=== PATIENT | female | born 1990 | race Caucasian/White ===

== ENCOUNTER 2020-06-20 11:59 | Inpatient (IN) | payer OTHER ==
[2020-06-24] MEDS ORDERED: CARBOPROST TROMETHAMINE 250 MCG/ML 1 ML AMP IM PRN (06:43)
[2020-06-24] MEDS ORDERED: METHYLERGONOVINE 0.2 MG/ML 1 ML AMP IM PRN (06:43)
[2020-06-24] MEDS ORDERED: TERBUTALINE 1 MG/ML VIAL SQ PRN (06:43)
[2020-06-24] MEDS ORDERED: LIDOCAINE 0.5% (PF) 5 MG/ML (50 ML SDV) SQ PRN (06:43)
[2020-06-24] MEDS ORDERED: OXYTOCIN 10 UNIT/ML 1 ML VIAL IM PRN (06:43)
[2020-06-24] MEDS ORDERED: OXYTOCIN 30 UNITS/500 ML NS 30 UNIT in SALINE 1 500ML.BAG IV SCH (06:45)
[2020-06-24 06:48] LABS: Glucose,Whole Blood 97 mg/dL (75-99)
[2020-06-24] MEDS: LACTATED RINGERS 1,000 ML IV SCH ×3 (07:05→12:20)
[2020-06-24 07:09] LABS: Basophils % (A) 0 %; Eosinophils # (A) 0.1 k/uL (0-0.7); Eosinophils % (A) 1 %; HCT 45.4 % (34.0-46.0); Lymphocytes # (A) 1.8 k/uL (1.0-4.8); Lymphocytes % (A) 19 %; MCH 31.4 pg (25.0-35.0); Mean Platelet Volume 10.9; Monocytes # (A) 0.5 k/uL (0-1.0); Monocytes % (A) 5 %; Neutrophils # (A) 7.1 k/uL (1.3-7.7); Neutrophils % (A) 74 %; Platelet Count 173 k/uL (150-450); RBC 4.78 m/uL (3.80-5.40); RDW 13.2 % (11.5-15.5); WBC 9.6 k/uL (3.8-10.6)
[2020-06-24 07:21] LABS: Anisocytosis (M) Present; Hypochromasia (M) Present
[2020-06-24] MEDS ORDERED: BUTORPHANOL 1 MG/ML 1 ML VIAL IV PRN (08:38)
--- NOTE | 2020-06-24 08:42 | P.HPOB ---
History of Present Illness H&P Date: 06/24/20 Chief Complaint: 40-4/7 weeks, induction The patient is a 30-year-old 1 para 0 admitted at 40-4/7 weeks as established by last menstrual period and confirmed by 8 week ultrasound. She is admitted for induction of labor with all signs reassuring. Her has b een complicated by gestational diabetes with excellent diet control of blood sugars and reassuring testing since 32 weeks on a weekly basis. Otherwise she has had no other complications. Group B strep status is negative. Obstetrical history: 1 para 0 with current statistics listed in history present illness. EDC of 06/20/2020 was established by last menstrual period and confirmed by 8 week ultrasound. Laboratory workup demonstrates a blood type of A+ with a negative antibody screen. Rubella status is immune. The remainder of the laboratory workup was within normal limits. Second trimester Glucola was elevated and followed by an abnormal three-hour glucose tolerance test making the diagnosis of gestational diabetes. Group B strep status is negative. Gynecologic history: Unremarkable with no history of any infections to include STDs. Review of Systems Review of systems is confined to history of present illness. Past Medical History Past Medical History: No Reported History History of Any Multi-Drug Resistant Organisms: None Reported Past Surgical History: Hernia Repair, Tonsillectomy Past Anesthesia/Blood Transfusion Reactions: No Reported Reaction Past Psychological History: Anxiety Smoking Status: Former smoker Past Alcohol Use History: None Reported Past Drug Use History: None Reported - Past Family History Father Family Medical History: No Reported History Medications and Allergies Home Medications Medication Instructions Recorded Confirmed Type No Known Home Medications 06/24/20 06/24/20 History Allergies Allergy/AdvReac Type Severity Reaction Status Date / Time No Known Allergies Allergy Verified 06/24/20 06:42 Exam Vital Signs Temp Pulse Resp BP Pulse Ox 06/24/20 06:42 97.3 F L 80 16 125/67 97 Intake and Output 06/23/20 06/24/20 06/24/20 22:59 06:59 14:59 Other: Weight 88.904 kg In general, this is a well-developed, well-nourished white female in no acute distress. Her heart has a regular rhythm and rate without murmur. Her lungs are clear to auscultation bilaterally in all love. Her abdomen is gravid, nondistended, has normal active bowel sounds, is soft, nontender, and without any palpable masses aside from uterine fundus. Her extremities without any cyanosis, clubbing, or edema and are nontender to palpation bilaterally. Digital cervical examination on straights her cervix to be 2+ centimeters dilated, 70% effaced, the vertex in presentation at -1-2 station. Artificial rupture of membranes is carried out demonstrating clear fluid. Results Result Diagrams: 06/24/20 06:50 Assessment and Plan (1) Post-dates Current Visit: Yes Status: Acute Code(s): O48.0 - POST-TERM SNOMED Code(s): 07634219 Plan: The patient has been admitted for induction of labor. Pitocin augmentation has been started and she is undergone artificial rupture of membranes. She'll have close maternal and surveillance and expectant management will be practiced. She is a good candidate for either IV or epidural analgesia, whichever she may choose.
[2020-06-24] MEDS ORDERED: ROPIVACAINE 100 MG, fentaNYL (PF) 200 MCG in SODIUM CHLORIDE 0.9% 76 ML EPIDURAL ONE (12:20)
[2020-06-24] MEDS ORDERED: CITRIC ACID-SODIUM CITRATE 15 ML CUP PO ONE (16:35)
[2020-06-24] MEDS ORDERED: KETOROLAC 30 MG/ML 1 ML VIAL ONE (16:51)
[2020-06-24] MEDS ORDERED: MORPHINE SULFATE (PF) 0.3 MG/0.3 ML SYR ONE (16:51)
[2020-06-24] MEDS ORDERED: ONDANSETRON 4 MG/2 ML VIAL ONE (16:51)
[2020-06-24] MEDS ORDERED: OXYTOCIN 10 UNIT/ML 1 ML VIAL ONE (16:51)
[2020-06-24] MEDS ORDERED: NALBUPHINE 10 MG/ML (1 ML AMP) ONE (16:51)
[2020-06-24] MEDS ORDERED: METOCLOPRAMIDE 5 MG/ML 2 ML VIAL IVP PRN (17:45)
[2020-06-24] MEDS ORDERED: NALOXONE 0.4 MG/ML 1 ML VIAL IV PRN (17:45)
[2020-06-24] MEDS ORDERED: SIMETHICONE 80 MG CHEWABLE PO PRN (17:45)
[2020-06-24] MEDS ORDERED: diphenhydrAMINE 50 MG/ML 1 ML VIAL IVP PRN ×2 (17:45)
[2020-06-24] MEDS ORDERED: ZOLPIDEM 5 MG TAB PO PRN (17:45)
[2020-06-24] MEDS ORDERED: LANOLIN CREAM 5 GM TUBE TOPICAL PRN (17:45)
[2020-06-24] MEDS ORDERED: OXYTOCIN 20 UNITS/1000 ML NS 1,000 ML IV SCH (17:45)
[2020-06-24] MEDS ORDERED: ONDANSETRON 4 MG/2 ML VIAL IVP PRN (17:45)
[2020-06-24] MEDS ORDERED: HYDROcodone/APAP 7.5-325MG 1 EACH TAB PO PRN (17:45)
[2020-06-24] MEDS ORDERED: diphenhydrAMINE 50 MG CAP PO PRN (17:45)
[2020-06-24] MEDS ORDERED: diphenhydrAMINE 25 MG CAP PO PRN (17:45)
[2020-06-24] MEDS ORDERED: ACETAMINOPHEN TAB 325 MG TAB PO PRN (17:45)
--- NOTE | 2020-06-24 17:55 | P.OP ---
Date of Procedure: 06/24/20 Preoperative Diagnosis: #1. 40-4/7 weeks, induction #2. Gestational diabetes #3. Arrest of descent Postoperative Diagnosis: Same Procedure(s) Performed: #1. Primary low-transverse section Anesthesia: epidural Surgeon: Robin Lucas Dip Tube Assembler Machine #1: Jennifer Ghotra Estimated Blood Loss (ml): 600 IV fluids (ml): 600 Urine output (ml): 100 Pathology: none sent Condition: stable Disposition: floor Operative Findings: Preoperative early, the patient had been pushing for close to 2 hours with descent of the head to approximately 0 station. She was thought to have a somewhat narrow angle of the symphysis and was developing It. Additionally, the infant with pushing effort began to have repetitive late decelerations with fairly slow recovery and occasional overshoot. Given these findings along with the suspected relatively large infant predicted at 87th percentile growth at 36 weeks, decision was made to proceed to the operating room for section. At surgery, the patient was delivered of a viable 8 lbs. 6 oz. baby boy with Apgars of 9 at 1 minute 9 at 5 minutes delivered in the left occiput anterior position. The head was noted to be very deep in the pelvis and was difficult to elevate. As result, there was blood-tinged urine during and after the procedure. The placenta was delivered manually, intact, and grossly normal with a grossly normal three-vessel cord. The uterus, tubes, and ovaries were entirely normal to inspection. Description of Procedure: The patient was prepped and draped in usual fashion after epidural anesthesia was bolused by the anesthesiologist. A Pfannenstiel incision was made and extended into the abdominal cavity without difficulty. The bladder peritoneum was elevated, incised, and reflected distally. A 270 incision was made in the transverse plane of the lower uterine segment to enter the uterus at which time clear fluid was again noted. The incision was extended in both directions using the bandage scissors. The head was encountered deep within the pelvis and, with some difficulty, was ultimately delivered up and through the incision where the nose and mouth were suctioned. Remainder of the was delivered onto the field where the cord was doubly clamped, cut, and the infant passed for resuscitative measures with weight and Apgars as noted above. The placenta was delivered manually and intact as noted above. The uterus was exteriorized and the interior cavity of the uterus swept of any remaining placental or membranous fragments of which there were several. The margins of the incision were grasped with Newsome clamps and there was minimal extension at either angle. Incision was closed in 2 stitches, the first a running locking stitch of 0 chromic catgut followed by a running imbricating stitch of 0 chromic catgut, each from margin to margin. Following closure of the incision in 2 layers, and reexamination demonstrated some ongoing bleeding at both angles which was ultimately made hemostatic with several limbah-xe-aptvu stitches of 0 chromic catgut. Any small points of bleeding were made hemostatic with the Bovie. The posterior cul-de-sac was suctioned with a guard and the uterine and ovarian findings were normal as noted above. The uterus was replaced within the abdominal cavity and the uterine incision reexamined. It was at this time that 2 kcdndn-qm-wnlus stitches were placed as noted above at the angles ultimately controlling the bleeding. Once hemostasis had been established, the gutters were swept of any remaining blood, fluid, or clot. The parietal peritoneum was loosely reapproximated and layer of muscles examined and made hemostatic with the Bovie. The fascia was closed with 2 running stitches of 0 Vicryl proceeding from lateral margins to the midpoint. The subcutaneous tissues were irrigated and made hemostatic with the Bovie but not closed as it was less than 2 cm of depth. The skin was closed with a running subcuticular stitch of 4-0 Vicryl from margin to margin followed by half inch Steri-Strips placed with Mastisol. Assessment a blood loss for the case was approximately 600 mL. There are no complications. All sponge, insulin, needle counts were correct. The patient tolerated the procedure well and proceeded to the recovery room in stable condition. Both mother and are resting comfortably in recovery.
[2020-06-24] MEDS: SENNOSIDES-DOCUSATE SODIUM 1 EACH TAB PO SCH (21:00)
[2020-06-24] MEDS: KETOROLAC 30 MG/ML 1 ML VIAL IVP PRN (22:52)
[2020-06-25] MEDS: LACTATED RINGERS 1,000 ML IV SCH ×2 (00:17→01:33)
[2020-06-25] MEDS: KETOROLAC 30 MG/ML 1 ML VIAL IVP PRN ×2 (05:03→10:57)
[2020-06-25 05:53] LABS: Basophils % (A) 0 %; Eosinophils % (A) 0 %; HCT 35.8 % (34.0-46.0); HGB 11.6 gm/dL (11.4-16.0); Lymphocytes % (A) 9 %; MCH 30.7 pg (25.0-35.0); MCHC 32.4 g/dL (31.0-37.0); MCV 94.6 fL (80.0-100.0); Mean Platelet Volume 10.6; Monocytes # (A) 0.5 k/uL (0-1.0); Monocytes % (A) 4 %; Neutrophils % (A) 86 %; Platelet Count 124 k/uL (150-450); RBC 3.78 m/uL (3.80-5.40); RDW 13.1 % (11.5-15.5); WBC 11.7 k/uL (3.8-10.6)
--- NOTE | 2020-06-25 08:01 | P.PN ---
Progress Note - Text Date: 06/25/2020 Time: 06 :39 The patient is status post section Vital signs stable VAS:[ 0-10] Patient has no complaints of pain. The patient incurred some minimal itching yesterday, this itching is now subsiding. Pain meds to be managed by service.
--- NOTE | 2020-06-25 08:32 | P.PNOBGPC ---
Subjective - Subjective Patient reports: Reports appetite normal, Reports voiding normally, Reports pain well controlled, Reports ambulating normally : doing well Objective - Vital Signs Latest vital signs: Vital Signs Temp Pulse Resp BP Pulse Ox 06/25/20 04:00 83 18 117/76 06/25/20 00:00 98.5 F 70 16 124/64 97 06/24/20 19:45 96.1 F L 74 18 120/66 98 06/24/20 19:15 97.1 F L 73 18 121/68 97 06/24/20 18:45 74 16 116/59 97 06/24/20 18:30 80 16 112/63 97 06/24/20 18:15 81 16 108/59 98 06/24/20 18:00 70 16 100/53 98 06/24/20 17:45 97.7 F 71 16 111/53 98 Intake and Output 06/24/20 06/25/20 06/25/20 22:59 06:59 14:59 Output Total 600 300 Balance -600 -300 Output: Urine 600 300 Other: Voiding Method Indwelling Catheter Toilet - Exam Extremities: Present: normal Abdomen: Present: normal appearance, soft. Absent: distention, tenderness Incision: Present: normal, dry, intact Uterus: Present: normal, firm (The uterine fundus is tonic and appropriately tender at the umbilicus.) - Labs Labs: Abnormal Lab Results - Last 24 Hours (Table) 06/25/20 Range/Units 05:15 WBC 11.7 H (3.8-10.6) k/uL RBC 3.78 L (3.80-5.40) m/uL Plt Count 124 L (150-450) k/uL Neutrophils # 10.0 H (1.3-7.7) k/uL Assessment and Plan (1) Post-dates Current Visit: Yes Status: Acute Code(s): O48.0 - POST-TERM SNOMED Code(s): 22713731 (2) S/P section Current Visit: Yes Status: Acute Code(s): Z98.891 - HISTORY OF UTERINE SCAR FROM PREVIOUS SURGERY SNOMED Code(s): 613160431 Plan: Continue routine postoperative care. I have encouraged the patient and put in the hallways routinely and would anticipate discharge home tomorrow pending no complications.
[2020-06-25] MEDS: SENNOSIDES-DOCUSATE SODIUM 1 EACH TAB PO SCH ×2 (08:42→19:57)
[2020-06-25] MEDS: HYDROcodone/APAP 5-325MG 1 EACH TAB PO PRN ×2 (13:49→20:00)
[2020-06-25] MEDS: IBUPROFEN 600 MG TAB PO PRN ×2 (16:54→22:14)
[2020-06-26] MEDS: HYDROcodone/APAP 5-325MG 1 EACH TAB PO PRN (01:34)
[2020-06-26] MEDS: IBUPROFEN 600 MG TAB PO PRN (07:29)
[2020-06-26] MEDS: SENNOSIDES-DOCUSATE SODIUM 1 EACH TAB PO SCH (07:30)
[2020-06-26 07:42] VITALS: BP 113/77; PULSE 91; RESP 16; TEMP 98.4
--- NOTE | 2020-06-26 08:51 | P.DS ---
Providers Date of admission: 06/24/20 06:31 Expected date of discharge: 06/26/20 Attending physician: Robin Lucas Primary care physician: Stated None - Discharge Diagnosis(es) (1) Post-dates Current Visit: Yes Status: Acute (2) S/P section Current Visit: Yes Status: Acute Hospital Course: The patient is a 30-year-old 1 para 0 admitted at 40-4/7 weeks by good dating parameters perches admitted for induction of labor with all signs reassuring. She was found with gestational diabetes during and was well controlled with diet alone. There are otherwise no complications and group B strep status is negative. On labor and delivery, she had Pitocin started followed by artificial rupture of membranes. She made relatively average progress through the latent phase of labor and had an epidural catheter placed from the onset of the active phase of labor. She did progress. Fairly quickly through the active phase of labor to complete and began pushing. She was found, however, to have arrested descent at approximately 0 to +1 station after approximately 2 hours of pushing and was thought to have a slightly contracted pelvic shape. She was taken the operating room where she was delivered by primary low transverse section of a viable 8 lbs. 6 oz. baby boy with Apgars of 9 at 1 minute and 9 at 5 minutes. Her and postoperative courses were entirely unremarkable with vital signs remaining stable and her temperature was afebrile throughout. She was deemed stable for discharge on post operative and day #2 and was discharged home to follow-up in the office in 2 weeks for an incision check and 6 weeks routinely. Discharge instructions included calling for any significantly increased bleeding or foul-smelling lochia, significantly increased fever or abdominal pain, perineal complaints, breast complaints, incisional complaints, or anything else that concerned her. She was additionally instructed to have nothing in vagina for at least 6 weeks time to include intercourse and to abstain from any heavy lifting over the same period of time. She is less instructed to do no driving until off of all pain medications or 2 weeks' time, whichever came first. She understood all of her instructions and agrees to follow up as noted above. Discharge medications included continued vitamins as she has opted to breast-feed. She was otherwise provided with a prescription for Broadbent 5/325 mg, 1-2 by mouth every 6 hours when necessary pain, #20 dispensed with no refills. She was otherwise to use vbnu-mdh-gbyyome analgesic pain medications as needed. Maternal blood type is A+ and rubella status is immune. Discharge hemoglobin and hematocrit were 11.6 and 35.8 respectively. Procedures: #1. Pitocin induction #2. Artificial rupture of membranes #3. Epidural analgesia #4. Primary low-transverse section Patient Condition at Discharge: Stable Plan - Discharge Summary New Discharge Prescriptions: No Action No Known Home Medications Discharge Medication List No Known Home Medications 06/24/20 [History] Follow up Appointment(s)/Referral(s): Robin Lucas MD [STAFF PHYSICIAN] - 2 Weeks Discharge Disposition: HOME SELF-CARE
== END 2020-06-26 10:45 | disposition home or self-care (01) | DRG 788 ==
LOC: 4FBP 06-24 06:31
PROVIDERS: ADMIT Obstetrics & Gynecology; ATTEND Obstetrics & Gynecology
PROC: 10D00Z1 Extraction of Products of Conception, Low, Open Approach (ICD-10-PCS; principal; 2020-06-24 16:43)
PROC: 3E0R3BZ Introduction of Anesthetic Agent into Spinal Canal, Percutaneous Approach (ICD-10-PCS; principal; 2020-06-24 16:43)
PROC: 10907ZC Drainage of Amniotic Fluid, Therapeutic from Products of Conception, Via Natural or Artificial Opening (ICD-10-PCS; principal; 2020-06-24 16:43)
PROC: 00HU33Z Insertion of Infusion Device into Spinal Canal, Percutaneous Approach (ICD-10-PCS; principal; 2020-06-24 16:43)
PROC: 3E033VJ Introduction of Other Hormone into Peripheral Vein, Percutaneous Approach (ICD-10-PCS; principal; 2020-06-24 16:43)
DX: O48.0 Post-term pregnancy (principal); O24.420 Gestational diabetes mellitus in childbirth, diet controlled; K21.9 Gastro-esophageal reflux disease without esophagitis; O62.1 Secondary uterine inertia; O76 Abnormality in fetal heart rate and rhythm complicating labor and delivery; O99.89 Other specified diseases and conditions complicating pregnancy, childbirth and the puerperium; R31.0 Gross hematuria; O99.62 Diseases of the digestive system complicating childbirth; Z3A.40 40 weeks gestation of pregnancy; Z37.0 Single live birth; Z87.891 Personal history of nicotine dependence; Z87.19 Personal history of other diseases of the digestive system; Z90.89 Acquired absence of other organs; Z98.890 Other specified postprocedural states; Z86.59 Personal history of other mental and behavioral disorders
CPT/HCPCS: 85025; 86850; 86900; 86901

== ENCOUNTER 2022-05-31 09:32 | Emergency (ER) | payer BC, OTHER ==
[2022-05-31 09:42] VITALS: TEMP 98
[2022-05-31 10:19] VITALS: RESP 18
--- NOTE | 2022-05-31 10:30 | XR ---
EXAMINATION TYPE: XR chest 2V DATE OF EXAM: 05/31/2022 COMPARISON: NONE HISTORY: Shortness of breath TECHNIQUE: Frontal and lateral views of the chest are obtained. FINDINGS: There is no focal air space opacity, pleural effusion, or pneumothorax seen. The cardiac silhouette size is within normal limits. The osseous structures are intact. IMPRESSION: No acute cardiopulmonary process.
--- NOTE | 2022-05-31 10:31 | XR ---
EXAMINATION TYPE: XR soft tissue neck DATE OF EXAM: 05/31/2022 COMPARISON: NONE HISTORY: Shortness of breath. TECHNIQUE: 2 view soft tissue neck. FINDINGS: No suspicious prevertebral soft tissue swelling. Region of epiglottis and vallecula appears within normal limits on the lateral view. No suspicious narrowing of the subglottic airway on the fr ontal view. Incidental moderate spurring and disc space narrowing C5-C6 level. IMPRESSION: As above.
--- NOTE | 2022-05-31 10:50 | ED ---
URI HPI - General Chief Complaint: Upper Respiratory Infection Stated Complaint: SOB Time Seen by Provider: 05/31/22 09:43 Source: patient, RN notes reviewed Mode of arrival: ambulatory Limitations: no limitations - History of Present Illness Initial Comments: 32-year-old female presents emergency Department with chief complaint of cough and congestion. Patient states she has been sick last to 3 days. Patient states initially that she took a negative COVID-19 test. Patient states that she awoke with throat, chest congestion and had some shortness of breath but that cleared. Patient has a congestion bodyaches no reported fever. - Related Data Home Medications Medication Instructions Recorded Confirmed Lisdexamfetamine Dimesylate 30 mg PO DAILY 05/31/22 05/31/22 [Vyvanse] Allergies Allergy/AdvReac Type Severity Reaction Status Date / Time No Known Allergies Allergy Verified 05/31/22 10:21 Review of Systems ROS Statement: Those systems with pertinent positive or pertinent negative responses have been documented in the HPI. ROS Other: All systems not noted in ROS Statement are negative. Past Medical History Past Medical History: No Reported History History of Any Multi-Drug Resistant Organisms: None Reported Past Surgical History: Section, Hernia Repair, Tonsillectomy Past Anesthesia/Blood Transfusion Reactions: No Reported Reaction Past Psychological History: ADD/ADHD, Anxiety Smoking Status: Former smoker Past Alcohol Use History: None Reported Past Drug Use History: None Reported - Past Family History Father Family Medical History: No Reported History General Exam Limitations: no limitations General appearance: alert, in no apparent distress Head exam: Present: atraumatic, normocephalic, normal inspection Eye exam: Present: normal appearance, PERRL, EOMI. Absent: scleral icterus, conjunctival injection, periorbital swelling ENT exam: Present: mucous membranes moist, TM's normal bilaterally, normal external ear exam. Absent: normal exam, normal oropharynx (Postnasal drainage) Neck exam: Present: normal inspection, full ROM. Absent: tenderness, meningismus, lymphadenopathy Respiratory exam: Present: normal lung sounds bilaterally. Absent: respiratory distress, wheezes, rales, rhonchi, stridor Cardiovascular Exam: Present: regular rate, normal rhythm, normal heart sounds. Absent: systolic murmur, diastolic murmur, rubs, gallop, clicks Course Vital Signs 05/31/22 05/31/22 09:38 10:10 Temperature 98.0 F Pulse Rate 97 Respiratory 22 18 Rate Blood Pressure 131/84 O2 Sat by Pulse 100 Oximetry Medical Decision Making - Medical Decision Making Patient has positive Covid 19. Patient we discharged in stable condition. Return parameters were discussed. - Lab Data Lab Results 05/31/22 Range/Units 10:07 Coronavirus (PCR) Detected A (Not Detectd) Disposition Clinical Impression: COVID-19 Disposition: HOME SELF-CARE Condition: Stable Instructions (If sedation given, give patient instructions): COVID-19 (Coronavirus Disease 2019) (ED) Additional Instructions: Please return to the Emergency Department if symptoms worsen or any other concerns. Is patient prescribed a controlled substance at d/c from ED?: No Referrals: Rylan Huerta MD [Primary Care Provider] - 1-2 days Time of Disposition: 10:50
[2022-05-31 10:58] VITALS: BP 127/81; PULSE 89
== END 2022-05-31 11:00 | disposition home or self-care (01) ==
LOC: EC 09:32
DX: U07.1 COVID-19 (principal); Z87.891 Personal history of nicotine dependence
CPT/HCPCS: 70360; 71046; 87635; 99285

== ENCOUNTER 2023-09-07 15:36 | Emergency (ER) | payer BC ==
--- NOTE | 2023-09-07 16:17 | ED ---
Female Urogenital HPI - General Source: patient, RN notes reviewed Mode of arrival: ambulatory Limitations: no limitations - History of Present Illness Last Menstrual Period: 09/07/23 <Negra Lemon - Last Filed: 09/07/23 16:17> <Gagan Dodd - Last Filed: 09/07/23 18:30> - General Chief complaint: Vaginal Bleeding Stated complaint: Vaginal Bleeding Time Seen by Provider: 09/07/23 16:16 - History of Present Illness Initial comments: Patient is a 33-year-old female who presents emergency department for vaginal bleeding. Patient states over the past couple weeks she has had heavier menstrual periods. She started her period on Tuesday and today has had increased bleeding soaking 1 pad in 20 minutes. Patient called Godfrey Bell who told her to come in for evaluation. (Negra Lemon) A 33-year-old female presenting to the ED with a chief complaint of vaginal bleeding. Patient notes over the past few months has had heavier periods than u sual. States today, a lot more vaginal bleeding that she is used to. States that she is went through 12 pads. Also notes some abdominal cramping in the left lower abdomen. Patient states that every time she is on her period this area increases in pain. States it is currently 3 out of 10 in severity. Patient states is dull in nature. No vaginal discharge. No urinary symptoms. Denies dizziness or lightheadedness. No other complaints. (Gagan Dodd) - Related Data Home Medications Medication Instructions Recorded Confirmed Lisdexamfetamine Dimesylate 30 mg PO DAILY 05/31/22 05/31/22 [Vyvanse] Allergies Allergy/AdvReac Type Severity Reaction Status Date / Time No Known Allergies Allergy Verified 09/07/23 16:09 Review of Systems ROS Other: All systems not noted in ROS Statement are negative. <Negra Lemon - Last Filed: 09/07/23 16:17> ROS Other: All systems not noted in ROS Statement are negative. <Gagan Dodd - Last Filed: 09/07/23 18:30> ROS Statement: Those systems with pertinent positive or pertinent negative responses have been documented in the HPI. Past Medical History Past Medical History: No Reported History History of Any Multi-Drug Resistant Organisms: None Reported Past Surgical History: Section, Hernia Repair, Orthopedic Surgery, Tonsillectomy Past Anesthesia/Blood Transfusion Reactions: No Reported Reaction Past Psychological History: ADD/ADHD, Anxiety Smoking Status: Former smoker Past Alcohol Use History: Occasional Past Drug Use History: None Reported - Past Family History Father Family Medical History: No Reported History <Negra Lemon - Last Filed: 09/07/23 16:17> General Exam Limitations: no limitations <Negra Lemon - Last Filed: 09/07/23 16:17> General appearance: alert, in no apparent distress Eye exam: Present: normal appearance Neck exam: Present: normal inspection Respiratory exam: Present: normal lung sounds bilaterally Cardiovascular Exam: Present: regular rate, normal rhythm GI/Abdominal exam: Present: soft (Minimal tenderness to palpation left lower quadrant. No rebound guarding or rigidity.), normal bowel sounds Neurological exam: Present: alert, oriented X3 Skin exam: Present: warm, dry <Gagan Dodd - Last Filed: 09/07/23 18:30> - General Exam Comments Initial Comments: Visual Physical Exam Vital signs reviewed General: Well-appearing, nontoxic, no acute distress. Head: Normocephalic, atraumatic Eyes: PERRLA, EOMI ENT: Airway patent Chest: Nonlabored breathing Skin: No visual rash, normal skin tone Neuro: Alert and oriented 3 Musculoskeletal: No gross abnormalities (Negra Lemon) Course Vital Signs 09/07/23 16:04 Temperature 98.5 F Pulse Rate 91 Respiratory 18 Rate Blood Pressure 128/76 O2 Sat by Pulse 98 Oximetry Medical Decision Making <Negra Lemon - Last Filed: 09/07/23 16:17> - Lab Data Result diagrams: 09/07/23 17:14 09/07/23 17:14 <Gagan Dodd - Last Filed: 09/07/23 18:30> - Medical Decision Making I performed the QuickNote portion of this chart - Negra Lemon PA-C (Negra Lemon) Was pt. sent in by a medical professional or institution (KRISTIAN Da Silva, METAL PICKLING EQUIPMENT OPERATOR, urgent care, hospital, or [facility]...) When possible be specific @ -No Did you speak to anyone other than the patient for history (EMS, parent, family, police, friend...)? What history was obtained from this source @ -No Did you review nursing and triage notes (agree or disagree)? Why? @ -I reviewed and agree with nursing and triage notes Were old charts reviewed (outside hosp., previous admission, EMS record, old EKG, old radiological studies, urgent care reports/EKG's, [facility] records)? Report findings @ -No old charts were reviewed Differential Diagnosis (chest pain, altered mental status, abdominal pain women, abdominal pain men, vaginal bleeding, weakness, fever, dyspnea, syncope, headache, dizziness, GI bleed, back pain, seizure, CVA, palpatations, mental health, musculoskeletal)? @ -Differential Vaginal Bleeding: Spontaneous , threatened , molar , ectopic , bloody show, incompetent cervix, abruptioplacenta, placenta previa, uterine rupture, dysfunctional uterine bleeding, hemorrhage, uterine fibroids, this is not meant to be an all-inclusive list. EKG interpreted by me (3pts min.). @ -None X-rays interpreted by me (1pt min.). @ -None done CT interpreted by me (1pt min.). @ -None done U/S interpreted by me (1pt. min.). @ -Transvaginal ultrasound interpreted by me showing no acute finding. What testing was considered but not performed or refused? (CT, X-rays, U/S, labs)? Why? @ -None What meds were considered but not given or refused? Why? @ -None Did you discuss the management of the patient with other professionals (professionals i.e. , PA, METAL PICKLING EQUIPMENT OPERATOR, lab, RT, psych nurse, social media job titles, director phone, teacher, medical officer psychiatry, special education case manager)? Give summary @ -No Was smoking cessation discussed for >3mins.? @ -No Was critical care preformed (if so, how long)? @ -No Were there social determinants of health that impacted care today? How? (Homelessness, low income, unemployed, alcoholism, drug addiction, transportation, low edu. Level, literacy, decrease access to med. care, group home, rehab)? @ -No Was there de-escalation of care discussed even if they declined (Discuss DNR or withdrawal of care, Hospice)? DNR status @ -No What co-morbidities impacted this encounter? (DM, HTN, Smoking, COPD, CAD, Cancer, CVA, ARF, Chemo, Hep., AIDS, mental health diagnosis, sleep apnea, morbid obesity)? @ -None Was patient admitted / discharged? Hospital course, mention meds given and route , prescriptions, significant lab abnormalities, going to OR and other pertinent info. @ -Discharge 33-year-old female who notes for the past few months has had heavier periods perez n usual presenting to the ED with a chief complaint of heavy bleeding. At this time, hemoglobin stable. Transvaginal ultrasound showed no acute finding. Patient reports that she is unable to or via a urine sample at this time however denies urinary symptoms and strongly believes that she is not . Patient also notes that she has an appointment with her CEMENT CAR DUMPER tomorrow. At this time, patient stable for discharge. Discussed return precautions with patient who verbalizes agreement. Undiagnosed new problem with uncertain prognosis? @ -No Drug Therapy requiring intensive monitoring for toxicity (Heparin, Nitro, Insulin, Cardizem)? @ -No Were any procedures done? @ -No Diagnosis/symptom? @ -Menorrhagia Acute, or Chronic, or Acute on Chronic? @ -Acute Uncomplicated (without systemic symptoms) or Complicated (systemic symptoms)? @ -Uncomplicated Side effects of treatment? @ -No Exacerbation, Progression, or Severe Exacerbation? @ -No Poses a threat to life or bodily function? How? (Chest pain, [place], [place], pneumonia, PE, COPD, DKA, ARF, appy, cholecystitis, CVA, Diverticulitis, Homicidal, Suicidal, threat to staff... and all critical care pts) @ -No (Gaagn Dodd) - Lab Data Lab Results 09/07/23 09/07/23 09/07/23 Range/Units 17:14 17:14 17:14 WBC 9.4 (3.8-10.6) k/uL RBC 4.46 (3.80-5.40) m/uL Hgb 14.1 (11.4-16.0) gm/dL Hct 42.5 (34.0-46.0) % MCV 95.2 (80.0-100.0) fL MCH 31.6 (25.0-35.0) pg MCHC 33.2 (31.0-37.0) g/dL RDW 12.4 (11.5-15.5) % Plt Count 256 (150-450) k/uL MPV 9.1 Neutrophils % 63 % Lymphocytes % 30 % Monocytes % 4 % Eosinophils % 2 % Basophils % 0 % Neutrophils # 5.9 (1.3-7.7) k/uL Lymphocytes # 2.8 (1.0-4.8) k/uL Monocytes # 0.3 (0-1.0) k/uL Eosinophils # 0.1 (0-0.7) k/uL Basophils # 0.0 (0-0.2) k/uL Sodium 137 (137-145) mmol/L Potassium 4.3 (3.5-5.1) mmol/L Chloride 105 (98-107) mmol/L Carbon Dioxide 20 L (22-30) mmol/L Anion Gap 12 mmol/L BUN 10 (7-17) mg/dL Creatinine 0.69 (0.52-1.04) mg/dL Est GFR (CKD-EPI)AfAm >90 (>60 ml/min/1.73 sqM) Est GFR (CKD-EPI)NonAf >90 (>60 ml/min/1.73 sqM) Glucose 92 (74-99) mg/dL Plasma Lactic Acid Don 0.9 (0.7-2.0) mmol/L Calcium 9.7 (8.4-10.2) mg/dL Total Bilirubin 0.6 (0.2-1.3) mg/dL AST 27 (14-36) U/L ALT 18 (4-34) U/L Alkaline Phosphatase 42 (38-126) U/L Total Protein 8.4 H (6.3-8.2) g/dL Albumin 5.0 (3.5-5.0) g/dL Lipase 115 (23-300) U/L Disposition <Negra Lemon - Last Filed: 09/07/23 16:17> Is patient prescribed a controlled substance at d/c from ED?: No Time of Disposition: 18:29 <Gagan Dodd - Last Filed: 09/07/23 18:30> Clinical Impression: Menorrhagia Disposition: HOME SELF-CARE Condition: Good Instructions (If sedation given, give patient instructions): Dysmenorrhea (ED) Additional Instructions: Please return to the Emergency Department if symptoms worsen or any other concerns. Please follow up with your CEMENT CAR DUMPER. Referrals: Rylan Huerta MD [Primary Care Provider] - 1-2 days
[2023-09-07 16:19] VITALS: BP 128/76; PULSE 91; RESP 18; TEMP 98.5
[2023-09-07] MEDS ORDERED: IBUPROFEN 600 MG TAB PO STA (17:25)
[2023-09-07 17:27] LABS: Basophils % (A) 0 %; Eosinophils # (A) 0.1 k/uL (0-0.7); Eosinophils % (A) 2 %; HCT 42.5 % (34.0-46.0); HGB 14.1 gm/dL (11.4-16.0); Lymphocytes # (A) 2.8 k/uL (1.0-4.8); Lymphocytes % (A) 30 %; MCH 31.6 pg (25.0-35.0); MCHC 33.2 g/dL (31.0-37.0); MCV 95.2 fL (80.0-100.0); Mean Platelet Volume 9.1; Monocytes # (A) 0.3 k/uL (0-1.0); Monocytes % (A) 4 %; Neutrophils # (A) 5.9 k/uL (1.3-7.7); Neutrophils % (A) 63 %; Platelet Count 256 k/uL (150-450); RBC 4.46 m/uL (3.80-5.40); RDW 12.4 % (11.5-15.5); WBC 9.4 k/uL (3.8-10.6)
--- NOTE | 2023-09-07 17:43 | US ---
EXAMINATION TYPE: US transvaginal DATE OF EXAM: 09/07/2023 COMPARISON: NONE CLINICAL INDICATION: Female, 33 years old with history of vaginal bleeding; Heavy bleeding today. Per iod started Tuesday09/04/23. . TECHNIQUE: Transvaginal (TV). Date of LMP: 09/04/22 EXAM MEASUREMENTS: Uterus: 6.8 x 4.9 x 3.6 cm Endometrial Stripe: 0.6 cm Right Ovary: 3.1 x 2.8 x 1.5 cm Left Ovary: 3.5 x 2.7 x 1.8 cm 1. Uterus: Anteverted wnl 2. Endometrium: There does appear to be some small cystic areas seen inside, no vascularity. 3. Right Ovary: follicles seen 4. Left Ovary: follicles seen Spectral, color and waveform doppler imaging shows good arterial and venous flow within the ovaries ; there is no evidence for ovarian torsion. 5. Bilateral Adnexa: wnl 6. Posterior cul-de-sac: wnl IMPRESSION: No evidence for acute process. 1. The endometrium is within normal limits for thickness.
[2023-09-07 17:58] LABS: ALT 18 U/L (4-34); AST 27 U/L (14-36); African American GFR (CKD) >90 (>60 ml/min/1.73 sqM); Alkaline Phosphatase 42 U/L (38-126); Anion Gap 12 mmol/L; Blood Urea Nitrogen 10 mg/dL (7-17); Calcium 9.7 mg/dL (8.4-10.2); Carbon Dioxide 20 mmol/L (22-30); Chloride 105 mmol/L (98-107); Glucose 92 mg/dL (74-99); Lipase 115 U/L (23-300); Non-African American GFR(CKD) >90 (>60 ml/min/1.73 sqM); Potassium 4.3 mmol/L (3.5-5.1); Sodium 137 mmol/L (137-145); Total Bilirubin 0.6 mg/dL (0.2-1.3); Total Protein 8.4 g/dL (6.3-8.2)
== END 2023-09-07 18:47 | disposition home or self-care (01) ==
LOC: EC 15:36
DX: N92.0 Excessive and frequent menstruation with regular cycle (principal); F41.9 Anxiety disorder, unspecified; Z87.891 Personal history of nicotine dependence; Z79.899 Other long term (current) drug therapy
CPT/HCPCS: 36415; 76830; 80053; 83605; 83690; 85025; 93975; 99284

== ENCOUNTER 2024-02-04 19:59 | Emergency (ER) | payer BC ==
[2024-02-04 20:32] VITALS: TEMP 98.4
[2024-02-04] MEDS: SODIUM CHLORIDE 0.9% 1,000 ML IV STA (20:55)
[2024-02-04] MEDS: MORPHINE SULFATE 4 MG/ML SYRINGE IVP STA (20:55)
[2024-02-04] MEDS: METOCLOPRAMIDE 5 MG/ML 2 ML VIAL IVP STA (20:57)
[2024-02-04 20:58] LABS: Basophils % (A) 0 %; Eosinophils # (A) 0.1 k/uL (0-0.7); Eosinophils % (A) 1 %; HGB 12.5 gm/dL (11.4-16.0); Lymphocytes # (A) 0.8 k/uL (1.0-4.8); Lymphocytes % (A) 12 %; MCH 31.3 pg (25.0-35.0); MCHC 32.8 g/dL (31.0-37.0); MCV 95.5 fL (80.0-100.0); Mean Platelet Volume 8.8; Monocytes # (A) 0.2 k/uL (0-1.0); Monocytes % (A) 3 %; Neutrophils # (A) 5.4 k/uL (1.3-7.7); Neutrophils % (A) 82 %; Platelet Count 206 k/uL (150-450); RBC 3.97 m/uL (3.80-5.40); RDW 12.3 % (11.5-15.5); WBC 6.5 k/uL (3.8-10.6)
[2024-02-04] MEDS: KETOROLAC 15 MG/ML 1 ML VIAL IVP STA (20:59)
--- NOTE | 2024-02-04 21:06 | ED ---
Abdominal Pain HPI - General Chief Complaint: Abdominal Pain Stated Complaint: Upper left abdominal pain Time Seen by Provider: 02/04/24 20:14 Source: patient Mode of arrival: ambulatory Limitations: no limitations - History of Present Illness Initial Comments: 33-year-old female presenting with chief complaint of abdominal pain. Patient is complaining of sharp left upper quadrant pain. Patient states that for the last 2 weeks she has had dull pain to the upper abdomen, states that she has felt very bloated and a "fullness". Today this pain intensifies to a sharp and stabbing pain. She admits to nausea, no vomiting. No recent injury or trauma. No dysuria or hematuria. No fevers or chills. No chest pain or difficulty breathing. No diarrhea, hematochezia, melena. - Related Data Home Medications Medication Instructions Recorded Confirmed Lisdexamfetamine Dimesylate 30 mg PO DAILY 05/31/22 05/31/22 [Vyvanse] Allergies Allergy/AdvReac Type Severity Reaction Status Date / Time No Known Allergies Allergy Verified 09/07/23 16:09 Review of Systems ROS Statement: Those systems with pertinent positive or pertinent negative responses have been documented in the HPI. ROS Other: All systems not noted in ROS Statement are negative. Past Medical History Past Medical History: No Reported History History of Any Multi-Drug Resistant Organisms: None Reported Past Surgical History: Section, Hernia Repair, Orthopedic Surgery, Tonsillectomy Past Anesthesia/Blood Transfusion Reactions: No Reported Reaction Past Psychological History: ADD/ADHD, Anxiety Smoking Status: Former smoker Past Alcohol Use History: Occasional Past Drug Use History: None Reported - Past Family History Father Family Medical History: No Reported History General Exam Limitations: no limitations General appearance: alert, in no apparent distress Head exam: Present: atraumatic, normocephalic Eye exam: Present: normal appearance Neck exam: Present: normal inspection Respiratory exam: Present: normal lung sounds bilaterally. Absent: respiratory distress, wheezes, rales, rhonchi, stridor Cardiovascular Exam: Present: regular rate, normal rhythm, normal heart sounds. Absent: systolic murmur, diastolic murmur, rubs, gallop, clicks GI/Abdominal exam: Present: soft, tenderness. Absent: distended, guarding, rebound, rigid Neurological exam: Present: alert, oriented X3 Psychiatric exam: Present: normal affect, normal mood Skin exam: Present: warm, dry Course Vital Signs 02/04/24 02/04/24 02/05/24 20:01 22:22 01:45 Temperature 98.4 F 98.4 F Pulse Rate 102 H 77 80 Respiratory 18 16 16 Rate Blood Pressure 105/59 103/63 107/64 O2 Sat by Pulse 98 97 97 Oximetry Medical Decision Making - Medical Decision Making Was pt. sent in by a medical professional or institution (, PA, THERMO PROCESSOR, urgent care, hospital, or skilled nursing...) When possible be specific @ -No Did you speak to anyone other than the patient for history (EMS, parent, family, police, friend...)? What history was obtained from this source @ -No Did you review nursing and triage notes (agree or disagree)? Why? @ -I reviewed and agree with nursing and triage notes Were old charts reviewed (outside hosp., previous admission, EMS record, old EKG, old radiological studies, urgent care reports/EKG's, skilled nursing records)? Report findings @ -No old charts were reviewed Differential Diagnosis (chest pain, altered mental status, abdominal pain women, abdominal pain men, vaginal bleeding, weakness, fever, dyspnea, syncope, headache, dizziness, GI bleed, back pain, seizure, CVA, palpatations, mental health, musculoskeletal)? @ -MDM Differential Abdominal Pain Women: Appendicitis, Cholecystitis, diverticulosis, ischemic bowel, pancreatitis, hepatitis, UTI, gastroenteritis, AAA, incarcerated hernia, bowel obstruction, constipation, inflammatory bowel, hepatitis, peptic ulcer disease, splenic infarction, perforated viscus, vulvitis, ovarian torsion, PID, kidney stone, placenta abruption... This is not meant to be an all-inclusive list EKG interpreted by me (3pts min.). @ -As above X-rays interpreted by me (1pt min.). @ -None done CT interpreted by me (1pt min.). @ -CT shows no acute findings in the abdomen or pelvis U/S interpreted by me (1pt. min.). @ -Ultrasound shows no evidence for acute process What testing was considered but not performed or refused? (CT, X-rays, U/S, labs)? Why? @ -None What meds were considered but not given or refused? Why? @ -None Did you discuss the management of the patient with other professionals (professionals i.e. , PA, THERMO PROCESSOR, lab, RT, psych nurse, social media marketing specialist, radiologic technologist, teacher, alumni relations officer, director of casework department)? Give summary @ -No Was smoking cessation discussed for >3mins.? @ -No Was critical care preformed (if so, how long)? @ -No Were there social determinants of health that impacted care today? How? (Homelessness, low income, unemployed, alcoholism, drug addiction, transportation, low edu. Level, literacy, decrease access to med. care, alf, rehab)? @ -No Was there de-escalation of care discussed even if they declined (Discuss DNR or withdrawal of care, Hospice)? DNR status @ -No What co-morbidities impacted this encounter? (DM, HTN, Smoking, COPD, CAD, Cancer, CVA, ARF, Chemo, Hep., AIDS, mental health diagnosis, sleep apnea, morbid obesity)? @ -None Was patient admitted / discharged? Hospital course, mention meds given and route, prescriptions, significant lab abnormalities, going to OR and other pertinent info. @ -33-year-old female present with chief complaint of left upper quadrant pain. She has had discomfort for the last 2 weeks and today was having sharp pain. History and physical exam are conducted. The abdomen is soft and nondistended. There does not appear to be any localized tenderness. Some mild discomfort on palpation. Lab work shows no leukocytosis or anemia. Patient's bilirubin is slightly elevated 2.1 and AST of 67. Amylase and lipase are WNL. Urine shows no infectious process or bleeding and hCG is negative. Ultrasound shows no acute process. Patient is reassessed after Toradol, Reglan, morphine, and 1 L fluid bolus. She reports improvement in her pain. Given the patient's mildly elevated bilirubin, decision was made to obtain CT scan to account for findings that may have been difficult to discern due to bowel gas. CT shows no acute process. By my interpretation there does appear to be a large amount of bowel gas in the upper abdomen, particularly in the left upper quadrant, this may account for the patient's symptoms. On reassessment she is resting comfortably and her pain has resolved. She will be discharged home. She is educated on today's findings. Follow-up with PCP. Report back to ER with any new or worsening symptoms. Discussed return parameters and answered all questions. Patient conveyed verbal understanding and agreed to the plan. I discussed this case in detail with my attending Dr. Elder Undiagnosed new problem with uncertain prognosis? @ -No Drug Therapy requiring intensive monitoring for toxicity (Heparin, Nitro, Insulin, Cardizem)? @ -No Were any procedures done? @ -No Diagnosis/symptom? @ -Abdominal pain Acute, or Chronic, or Acute on Chronic? @ -Acute Uncomplicated (without systemic symptoms) or Complicated (systemic symptoms)? @ -Uncomplicated Side effects of treatment? @ -No Exacerbation, Progression, or Severe Exacerbation? @ -No Poses a threat to life or bodily function? How? (Chest pain, [place], [place], pneumonia, PE, COPD, DKA, ARF, appy, cholecystitis, CVA, Diverticulitis, Homicidal, Suicidal, threat to staff... and all critical care pts) @ -No - Lab Data Result diagrams: 02/04/24 20:41 02/04/24 20:41 Lab Results 02/04/24 02/04/24 02/04/24 Range/Units 20:41 20:41 20:41 WBC 6.5 (3.8-10.6) k/uL RBC 3.97 (3.80-5.40) m/uL Hgb 12.5 (11.4-16.0) gm/dL Hct 38.0 (34.0-46.0) % MCV 95.5 (80.0-100.0) fL MCH 31.3 (25.0-35.0) pg MCHC 32.8 (31.0-37.0) g/dL RDW 12.3 (11.5-15.5) % Plt Count 206 (150-450) k/uL MPV 8.8 Neutrophils % 82 % Lymphocytes % 12 % Monocytes % 3 % Eosinophils % 1 % Basophils % 0 % Neutrophils # 5.4 (1.3-7.7) k/uL Lymphocytes # 0.8 L (1.0-4.8) k/uL Monocytes # 0.2 (0-1.0) k/uL Eosinophils # 0.1 (0-0.7) k/uL Basophils # 0.0 (0-0.2) k/uL Sodium (137-145) mmol/L Potassium (3.5-5.1) mmol/L Chloride (98-107) mmol/L Carbon Dioxide (22-30) mmol/L Anion Gap mmol/L BUN (7-17) mg/dL Creatinine (0.52-1.04) mg/dL Est GFR (CKD-EPI)AfAm (>60 ml/min/1.73 sqM) Est GFR (CKD-EPI)NonAf (>60 ml/min/1.73 sqM) Glucose (74-99) mg/dL Plasma Lactic Acid Don (0.7-2.0) mmol/L Calcium (8.4-10.2) mg/dL Total Bilirubin (0.2-1.3) mg/dL AST (14-36) U/L ALT (4-34) U/L Alkaline Phosphatase (38-126) U/L Troponin I (0.000-0.034) ng/mL Total Protein (6.3-8.2) g/dL Albumin (3.5-5.0) g/dL Amylase (30-110) U/L Lipase (23-300) U/L Urine Color Colorless Urine Appearance Clear (Clear) Urine pH 5.5 (5.0-8.0) Ur Specific [place] 1.007 (1.001-1.035) Urine Protein Negative (Negative) Urine Glucose (UA) Negative (Negative) Urine Ketones Negative (Negative) Urine Blood Negative (Negative) Urine Nitrite Negative (Negative) Urine Bilirubin Negative (Negative) Urine Urobilinogen <2.0 (<2.0) mg/dL Ur Leukocyte Esterase Negative (Negative) Urine HCG, Qual Not Detected (Not Detectd) 02/04/24 02/04/24 02/04/24 Range/Units 20:41 20:41 20:41 WBC (3.8-10.6) k/uL RBC (3.80-5.40) m/uL Hgb (11.4-16.0) gm/dL Hct (34.0-46.0) % MCV (80.0-100.0) fL MCH (25.0-35.0) pg MCHC (31.0-37.0) g/dL RDW (11.5-15.5) % Plt Count (150-450) k/uL MPV Neutrophils % % Lymphocytes % % Monocytes % % Eosinophils % % Basophils % % Neutrophils # (1.3-7.7) k/uL Lymphocytes # (1.0-4.8) k/uL Monocytes # (0-1.0) k/uL Eosinophils # (0-0.7) k/uL Basophils # (0-0.2) k/uL Sodium 131 L (137-145) mmol/L Potassium (3.5-5.1) mmol/L Chloride 108 H (98-107) mmol/L Carbon Dioxide 14 L (22-30) mmol/L Anion Gap 9 mmol/L BUN 9 (7-17) mg/dL Creatinine 0.59 (0.52-1.04) mg/dL Est GFR (CKD-EPI)AfAm >90 (>60 ml/min/1.73 sqM) Est GFR (CKD-EPI)NonAf >90 (>60 ml/min/1.73 sqM) Glucose 103 H (74-99) mg/dL Plasma Lactic Acid Don 1.0 (0.7-2.0) mmol/L Calcium 8.0 L (8.4-10.2) mg/dL Total Bilirubin 2.1 H (0.2-1.3) mg/dL AST 67 H (14-36) U/L ALT 19 (4-34) U/L Alkaline Phosphatase <20 L (38-126) U/L Troponin I 0.029 (0.000-0.034) ng/mL Total Protein 7.8 (6.3-8.2) g/dL Albumin 4.5 (3.5-5.0) g/dL Amylase 67 (30-110) U/L Lipase 77 (23-300) U/L Urine Color Urine Appearance (Clear) Urine pH (5.0-8.0) Ur Specific [place] (1.001-1.035) Urine Protein (Negative) Urine Glucose (UA) (Negative) Urine Ketones (Negative) Urine Blood (Negative) Urine Nitrite (Negative) Urine Bilirubin (Negative) Urine Urobilinogen (<2.0) mg/dL Ur Leukocyte Esterase (Negative) Urine HCG, Qual (Not Detectd) Disposition Clinical Impression: Abdominal pain Disposition: HOME SELF-CARE Condition: Poor Instructions (If sedation given, give patient instructions): Abdominal Pain (ED) Additional Instructions: Follow-up with PCP. Report back to ER with any new or worsening symptoms. Is patient prescribed a controlled substance at d/c from ED?: No Referrals: Rylan Huerta MD [Primary Care Provider] - 1-2 days Time of Disposition: 01:33
[2024-02-04 21:10] LABS: ALT 19 U/L (4-34); AST 67 U/L (14-36); African American GFR (CKD) >90 (>60 ml/min/1.73 sqM); Albumin 4.5 g/dL (3.5-5.0); Alkaline Phosphatase <20 U/L (38-126); Amylase 67 U/L (30-110); Anion Gap 9 mmol/L; Blood Urea Nitrogen 9 mg/dL (7-17); Carbon Dioxide 14 mmol/L (22-30); Chloride 108 mmol/L (98-107); Glucose 103 mg/dL (74-99); Lipase 77 U/L (23-300); Non-African American GFR(CKD) >90 (>60 ml/min/1.73 sqM); Sodium 131 mmol/L (137-145); Total Bilirubin 2.1 mg/dL (0.2-1.3); Total Protein 7.8 g/dL (6.3-8.2)
--- NOTE | 2024-02-04 21:45 | US ---
EXAMINATION TYPE: US abdomen complete DATE OF EXAM: 02/04/2024 COMPARISON: NONE CLINICAL INDICATION: Female, 33 years old with history of LUQ pain; LUQ pain, nausea, abdominal fulln ess TECHNIQUE: Multiple sonographic images of the abdomen are obtained. FINDINGS: EXAM MEASUREMENTS: Liver Length: 18.4 cm Gallbladder Wall: 0.2 cm CBD: 0.4 cm Spleen: 10.7 cm Right Kidney: 10.2 x 3.8 x 4.3 cm Left Kidney: 11.6 x 5.2 x 5.1 cm ADVERTISING SALES REPRESENTATIVE NOTES: Technical limitations due to large amount of overlying bowel gas Pancreas: Obscured by bowel gas Liver: visualized portions appear wnl Gallbladder: no evidence of stones as visualized Evidence for sonographic Vasquez's sign: no CBD: appears wnl Spleen: wnl Right Kidney: no evidence of hydronephrosis Left Kidney: limited evaluation, no evidence of hydronephrosis Upper IVC: wnl Abd Aorta: proximal obscured by overlying bowel gas, visualized portions appear wnl The liver is homogenous. The intrahepatic portion of the IVC and proximal abdominal aorta are within normal limits. There is no evidence of cholelithiasis. Common bile duct is unremarkable. The visu alized portions of the pancreas are homogenous. The spleen is unremarkable. Kidneys are symmetric a nd free of hydronephrosis. No renal lesions are seen. IMPRESSION: No evidence for acute process.
[2024-02-04 22:11] LABS: Appearance,Urine Clear (Clear); Bilirubin,Urine Negative (Negative); Blood,Urine Negative (Negative); Color,Urine Colorless; Glucose,Urine (UA) Negative (Negative); Ketones,Urine Negative (Negative); Leukocyte Esterase,Urine Negative (Negative); Nitrite,Urine Negative (Negative); PH, Urine 5.5 (5.0-8.0); Protein,Urine Negative (Negative); Specific Gravity,Urine 1.007 (1.001-1.035); Urobilinogen,Urine <2.0 mg/dL (<2.0)
[2024-02-04 22:49] VITALS: RESP 16
--- NOTE | 2024-02-05 01:29 | CT ---
EXAM: CT Abdomen and Pelvis With Intravenous Contrast CLINICAL HISTORY: ITS.REASON CT Reason: LUQ pain TECHNIQUE: Axial computed tomography images of the abdomen and pelvis with intravenous contrast. CTDI is 15.4 mGy and DLP is 825.2 mGy-cm. This CT exam was performed using one or more of the following dose reduction techniques: automated exposure control, adjustment of the mA and/or kV according to patient size, and/or use of iterative reconstruction technique. Delayed imaging was performed. COMPARISON: No relevant prior studies available. FINDINGS: Lung bases: Unremarkable. No mass. No consolidation. ABDOMEN: Liver: Unremarkable. No mass. Gallbladder and bile ducts: Unremarkable. No calcified stones. No ductal dilation. Pancreas: Unremarkable. No mass. No ductal dilation. Spleen: Unremarkable. No splenomegaly. Adrenals: Unremarkable. No mass. Kidneys and ureters: Symmetric renal enhancement. No hydronephrosis. Normal excretion of contrast from both kidneys on delayed imaging. Stomach and bowel: Unremarkable. No mucosal thickening. No mechanical bowel obstruction. PELVIS: Appendix: Normal-caliber retrocecal appendix. Bladder: Unremarkable. No bladder wall thickening. Reproductive: Uterus, adnexa within normal limits. Dominant right ovarian follicle. ABDOMEN and PELVIS: Intraperitoneal space: Unremarkable. No free air. No significant fluid collection. Bones/joints: No acute fracture. No dislocation. Soft tissues: Unremarkable. Vasculature: Unremarkable. No abdominal aortic aneurysm. Lymph nodes: Unremarkable. No enlarged lymph nodes. IMPRESSION: No acute findings in the abdomen or pelvis.
[2024-02-05 02:16] VITALS: BP 107/64; PULSE 80
== END 2024-02-05 01:46 | disposition home or self-care (01) ==
LOC: EC 19:59
DX: R10.12 Left upper quadrant pain (principal); F90.9 Attention-deficit hyperactivity disorder, unspecified type; Z79.899 Other long term (current) drug therapy; Z87.891 Personal history of nicotine dependence
CPT/HCPCS: 36415; 93005; 80053; 82150; 83605; 83690; 84484; 85025; 81003; 81025; 76700; 74177; 99285; 96374; 96375 ×2; 96361; J2270; J2765; J1885; Q9967

== ENCOUNTER 2025-05-15 11:41 | Emergency (ER) | payer BC ==
[2025-05-15 13:04] LABS: Basophils # (A) 0.04 10*3/uL (0.00-0.10); Basophils % (A) 0.3 %; Eosinophils # (A) 0.01 10*3/uL (0.04-0.35); Eosinophils % (A) 0.1 %; HCT 37.5 % (37.2-46.3); HGB 12.6 g/dL (12.0-15.0); Lymphocytes # (A) 1.05 10*3/uL (0.90-5.00); Lymphocytes % (A) 8.9 %; MCH 30.7 pg (27.0-32.0); MCHC 33.6 g/dL (32.0-37.0); MCV 91.5 fL (80.0-97.0); Mean Platelet Volume 11.4 fL (9.5-12.2); Monocytes # (A) 0.34 10*3/uL (0.20-1.00); Monocytes % (A) 2.9 %; Neutrophils # (A) 10.26 10*3/uL (1.80-7.70); Platelet Count 274 10*3/uL (140-440); RDW 13.2 % (11.5-14.5); WBC 11.79 10*3/uL (4.50-10.00)
[2025-05-15] MEDS: LACTATED RINGERS 1,000 ML IV ONE (13:07)
[2025-05-15 13:11] LABS: ALT 24 U/L (4-34); African American GFR (CKD) >90 (>60 ml/min/1.73 sqM); Albumin 4.9 g/dL (3.5-5.0); Anion Gap 11 mmol/L; Blood Urea Nitrogen 14 mg/dL (7-17); Calcium 9.9 mg/dL (8.4-10.2); Carbon Dioxide 16 mmol/L (22-30); Chloride 109 mmol/L (98-107); Glucose 131 mg/dL (74-99); Non-African American GFR(CKD) >90 (>60 ml/min/1.73 sqM); Sodium 136 mmol/L (137-145); Total Bilirubin 0.4 mg/dL (0.2-1.3); Total Protein 7.8 g/dL (6.3-8.2)
[2025-05-15 13:18] LABS: INR 0.8 (<1.2); Partial Thromboplastin Time 24.6 sec (22.0-30.0); Prothrombin Time 9.5 sec (10.0-12.5)
[2025-05-15 13:40] LABS: AST 31 U/L (14-36); Alkaline Phosphatase 61 U/L (38-126); Magnesium 1.9 mg/dL (1.6-2.3); Potassium 4.5 mmol/L (3.5-5.1)
--- NOTE | 2025-05-15 14:38 | CT ---
EXAMINATION TYPE: CT brain amy wo con DATE OF EXAM: 05/15/2025 1:52 PM COMPARISON: None. CLINICAL INDICATION: Female, 35 years old with history of weakness, Bilateral upper and lower extremi ty numbness, pain TECHNIQUE: CT of the brain is performed utilizing 3 mm thick sections through the posterior fossa and 3 mm thick sections through the remaining calvarium. Study is performed within 24 hours of arrival to the hospital. Contrast used: mL of , (none if empty) CT DLP: 1277.4 mGycm, Automated exposure control for dose reduction was used. FINDINGS: No abnormal hyperdensity is present to suggest an acute intracranial hemorrhage. No mass lesion is evident. No acute infarcts are evident. Ventricles and sulci are appropriate for the patient age. Paranasal sinuses and mastoid air cells within the [id number] are clear. IMPRESSIONS: 1. No acute intracranial process. Follow-up MRI can be performed as clinically indicated. CT cervical spine. COMPARISON: None TECHNIQUE: CT of the cervical spine is performed in the axial plane at 2 mm thick sections. Reconstr ucted images in the coronal, and sagittal plane are reviewed on the computer. FINDINGS: No acute fractures are evident. Vertebral body alignment is normal. There is loss disc height C5-6. Mild anterior vertebral body spurring is present. Mild loss of disc h eight is present C4-5. Remaining disc heights are preserved. Vertebral body heights are preserved. Vertebral body heights are preserved. No spinal canal stenosis is evident. No neural foraminal stenosis is evident. IMPRESSION: 1. No acute osseous abnormality cervical spine. 2. Degenerative disc changes C5-6 [facility], , 05/15/2025 2:36 PM
[2025-05-15 14:49] LABS: Appearance,Urine Cloudy (Clear); Bacteria,Urine Occasional /hpf; Bilirubin,Urine Negative (Negative); Blood,Urine Negative (Negative); Color,Urine Colorless; Glucose,Urine (UA) Negative (Negative); Ketones,Urine Negative (Negative); Leukocyte Esterase,Urine Negative (Negative); Mucus,Urine Rare /hpf; Nitrite,Urine Negative (Negative); PH, Urine 5.5 (5.0-8.0); Protein,Urine Negative (Negative); RBC,Urine <1 /hpf (0-5); Specific Gravity,Urine 1.008 (1.001-1.035); Squamous Epithelial Cell,Urine 6 /hpf (0-4); Urobilinogen,Urine <2.0 mg/dL (<2.0); WBC,Urine <1 /hpf (0-5)
--- NOTE | 2025-05-15 15:02 | ED ---
General Adult HPI - General Chief complaint: Neuro Symptoms/Deficit Stated complaint: Numbness in Left Arm and Both Legs Time Seen by Provider: 05/15/25 12:42 Source: patient, RN notes reviewed, old records reviewed Mode of arrival: ambulatory Limitations: no limitations - History of Present Illness Initial comments: 35-year-old female presents emergency department for numbness and tingling with a heaviness in the left arm. This occurred last week as well as on Tuesday. States she currently does not have any weakness but feels somewhat heavy with some tingling in her left pinky finger through the lateral aspect of her left hand. States she may have similar extremity weakness as well. Denies any falls or injuries. Denies any other numbness. No history of strokes. No other acute complaints. No significant past medical history. Was seen last week at urgent care and diagnosed with likely chronic degenerative changes of the spine on x- ray and recommendations for MRI were made. Patient does ask if MRI could be done today which cannot be done outpatient through the ER. She presents for further evaluation at this time. States symptoms seem worse today but has had them somewhat since Tuesday. Patient has also been complaining of some middle cervical spine burning sensation/pain that is in addition to these paresthesias. - Related Data Home Medications Medication Instructions Recorded Confirmed Escitalopram [Lexapro] 10 mg PO DAILY 05/15/25 05/15/25 Lisdexamfetamine Dimesylate 50 mg PO DAILY 05/15/25 05/15/25 [Vyvanse] methocarbamoL [Robaxin] 750 mg PO Q4H PRN 05/15/25 05/15/25 predniSONE See Taper PO DIRECTED 05/15/25 05/15/25 Allergies Allergy/AdvReac Type Severity Reaction Status Date / Time No Known Allergies Allergy Verified 05/15/25 13:23 Review of Systems ROS Statement: Those systems with pertinent positive or pertinent negative responses have been documented in the HPI. Review of Systems: CONST: Denies fever EYES: Denies blurry vision ENT: Denies nasal congestion C/V: Denies Chest pain RESP: Denies shortness of breath GI: Denies abdominal pain : Denies dysuria SKIN: Denies rash. MSK: Denies joint pain. NEURO: Denies headache ROS Other: All systems not noted in ROS Statement are negative. Past Medical History Past Medical History: No Reported History History of Any Multi-Drug Resistant Organisms: None Reported Past Surgical History: Section, Hernia Repair, Orthopedic Surgery, Tonsillectomy Past Anesthesia/Blood Transfusion Reactions: No Reported Reaction Past Psychological History: ADD/ADHD, Anxiety Smoking Status: Former smoker Past Alcohol Use History: Occasional Past Drug Use History: None Reported - Past Family History Father Family Medical History: No Reported History General Exam - General Exam Comments Initial Comments: General: Appears anxious HEAD: Normal with no signs of head trauma. EYES: PERRLA, EOMI, conjunctiva normal, no discharge. ENT: Hearing grossly intact, normal oropharynx. RESPIRATORY: Clear breath sounds bilaterally. No wheezes, rales, or rhonchi. C/V: Regular rate and rhythm. S1 and S2 auscultated, no edema, peripheral pulses 2+ and intact throughout ABD: Abd is soft, nontender, nondistended EXT: Normal range of motion, no obvious deformityNo obvious significant midline cervical spine tenderness to palpation or thoracic or lumbar spine. Mild discomfort in the midline cervical spine. No step-offs or deformities palpated. SKIN: No rashes or lesions observed on exposed skin. NEURO: Alert and orient x 4. No obvious focal strength deficits. Patient does have some paresthesias and some mild sensory deficits to the lateral aspect of the left hand along the lateral pinky into the hand. No obvious other changes. NIH is 0. Limitations: no limitations Course Vital Signs 05/15/25 05/15/25 11:44 15:28 Temperature 97.9 F 99.1 F Pulse Rate 113 H 67 Respiratory 18 16 Rate Blood Pressure 144/87 118/74 O2 Sat by Pulse 98 98 Oximetry Medical Decision Making - Medical Decision Making Was pt. sent in by a medical professional or institution (, PA, [employer], urgent care, hospital, or halfway...) When possible be specific @ -No Did you speak to anyone other than the patient for history (EMS, parent, family, police, friend...)? What history was obtained from this source @ -No Did you review nursing and triage notes (agree or disagree)? Why? @ -I reviewed and agree with nursing and triage notes Were old charts reviewed (outside hosp., previous admission, EMS record, old EKG, old radiological studies, urgent care reports/EKG's, halfway records)? Report findings @ -No old charts were reviewed Differential Diagnosis (chest pain, altered mental status, abdominal pain women, abdominal pain men, vaginal bleeding, weakness, fever, dyspnea, syncope, headache, dizziness, GI bleed, back pain, seizure, CVA, palpatations, mental health, musculoskeletal)? @ -CVA, cervical radiculopathy, electrolyte abnormality, this list is not all inclusive. EKG interpreted by me (3pts min.). @ -As above X-rays interpreted by me (1pt min.). @ -None done CT interpreted by me (1pt min.). @ -CT brain and C-spine negative for any obvious acute process. Patient does appear to have some degenerative changes of the cervical spine present without any obvious acute injury. Could be indicative of radiculopathy. U/S interpreted by me (1pt. min.). @ -None done What testing was considered but not performed or refused? (CT, X-rays, U/S, labs)? Why? @ -None What meds were considered but not given or refused? Why? @ -None Did you discuss the management of the patient with other professionals (professionals i.e. , PA, [employer], lab, RT, psych nurse, social service assistant, cray fishing hand, teacher, financial services officer, case finisher)? Give summary @ -No Was smoking cessation discussed for >3mins.? @ -No Was critical care preformed (if so, how long)? @ -No Were there social determinants of health that impacted care today? How? (Homelessness, low income, unemployed, alcoholism, drug addiction, transportation, low edu. Level, literacy, decrease access to med. care, intermediate, rehab)? @ -No Was there de-escalation of care discussed even if they declined (Discuss DNR or withdrawal of care, Hospice)? DNR status @ -No What co-morbidities impacted this encounter? (DM, HTN, Smoking, COPD, CAD, Cancer, CVA, ARF, Chemo, Hep., AIDS, mental health diagnosis, sleep apnea, morbid obesity)? @ -None Was patient admitted / discharged? Hospital course, mention meds given and route, prescriptions, significant lab abnormalities, going to OR and other pertinent info. @ -Patient presents with multiple days of left upper extremity paresthesias which she describes as as heaviness. NIH seems 0 she has no focal sensory deficits but does have the subjective paresthesias of the lateral aspect of the left hand. No obvious strength deficits present throughout her body. Vitals are within acceptable limits. I discussed with the patient and he has symptoms have been ongoing for multiple days, we will obtain CT brain and C-spine in addition to to basic labs. Patient was in agreement this plan. Vitals are within acceptable limits. EKG shows no signs of acute ischemia. CT imaging of the cervical spine and brain negative for any obvious acute process but there is degenerative changes in the neck. Labs are remarkable for mild lactic acidosis of 2.6 which I believe is likely secondary to dehydration. Remainder the workup unremarkable. On reevaluation, patient still with mild symptoms. Discussed results. I believe is safe for her to be discharged home as she has had multiple days of these complaints without any obvious etiology. I recommend she follow-up with her PCP which she already has an appointment for next . Outpatient MRI can be completed if symptoms persist. Does seem to be more of a cervical radiculopathy to myself. I did discuss with the patient she was in agreement. Recommend Tylenol Motrin for pain. She was already on prednisone at home. Strict return precautions discussed. Patient was in agreement this plan. I instructed the patient to follow up with their PCP in the next 1-3 days.. I explained that the patient should return to the emergency department if they experience any worsening symptoms. Strict return precautions were discussed with the patient. The patient expressed understanding of these instructions. I answered all questions that the patient had. The patient was discharged home in good condition with their prescriptions and follow up information. Undiagnosed new problem with uncertain prognosis? @ -No Drug Therapy requiring intensive monitoring for toxicity (Heparin, Nitro, Insuli n, Cardizem)? @ -No Were any procedures done? @ -No Diagnosis/symptom? @ -Cervical radiculopathy, left arm/hand paresthesias Acute, or Chronic, or Acute on Chronic? @ -Acute Uncomplicated (without systemic symptoms) or Complicated (systemic symptoms)? @ -Uncomplicated Side effects of treatment? @ -No Exacerbation, Progression, or Severe Exacerbation? @ -No Poses a threat to life or bodily function? How? (Chest pain, [place], [place], pneumonia, PE, COPD, DKA, ARF, appy, cholecystitis, CVA, Diverticulitis, Homicidal, Suicidal, threat to staff... and all critical care pts) @ -Unlikely at this time - Lab Data Result diagrams: 05/15/25 12:58 05/15/25 12:58 Lab Results 05/15/25 05/15/25 05/15/25 Range/Units 12:58 12:58 12:58 WBC 11.79 H (4.50-10.00) 10*3/uL RBC 4.10 (4.10-5.20) 10*6/uL Hgb 12.6 (12.0-15.0) g/dL Hct 37.5 (37.2-46.3) % MCV 91.5 (80.0-97.0) fL MCH 30.7 (27.0-32.0) pg MCHC 33.6 (32.0-37.0) g/dL Plt Count 274 (140-440) 10*3/uL MPV 11.4 (9.5-12.2) fL Immature Gran % (Auto) 0.8 % Neutrophils % 87.0 % Lymphocytes % 8.9 % Monocytes % 2.9 % Eosinophils % 0.1 % Basophils % 0.3 % Immature Gran # 0.09 H (0.00-0.04) 10*3/uL Neutrophils # 10.26 H (1.80-7.70) 10*3/uL Lymphocytes # 1.05 (0.90-5.00) 10*3/uL Monocytes # 0.34 (0.20-1.00) 10*3/uL Eosinophils # 0.01 L (0.04-0.35) 10*3/uL Basophils # 0.04 (0.00-0.10) 10*3/uL PT 9.5 L (10.0-12.5) sec INR 0.8 (<1.2) APTT 24.6 (22.0-30.0) sec Sodium 136 L (137-145) mmol/L Potassium 4.5 (3.5-5.1) mmol/L Chloride 109 H (98-107) mmol/L Carbon Dioxide 16 L (22-30) mmol/L Anion Gap 11 mmol/L BUN 14 (7-17) mg/dL Creatinine 0.63 (0.52-1.04) mg/dL Est GFR (CKD-EPI)AfAm >90 (>60 ml/min/1.73 sqM) Est GFR (CKD-EPI)NonAf >90 (>60 ml/min/1.73 sqM) Glucose 131 H (74-99) mg/dL Plasma Lactic Acid Don (0.7-2.0) mmol/L Calcium 9.9 (8.4-10.2) mg/dL Magnesium 1.9 (1.6-2.3) mg/dL Total Bilirubin 0.4 (0.2-1.3) mg/dL AST 31 (14-36) U/L ALT 24 (4-34) U/L Alkaline Phosphatase 61 (38-126) U/L Total Protein 7.8 (6.3-8.2) g/dL Albumin 4.9 (3.5-5.0) g/dL Urine Color Urine Appearance (Clear) Urine pH (5.0-8.0) Ur Specific Orr (1.001-1.035) Urine Protein (Negative) Urine Glucose (UA) (Negative) Urine Ketones (Negative) Urine Blood (Negative) Urine Nitrite (Negative) Urine Bilirubin (Negative) Urine Urobilinogen (<2.0) mg/dL Ur Leukocyte Esterase (Negative) Urine RBC (0-5) /hpf Urine WBC (0-5) /hpf Ur Squamous Epith Cells (0-4) /hpf Urine Bacteria (None) /hpf Urine Mucus (None) /hpf 05/15/25 05/15/25 Range/Units 12:58 13:56 WBC (4.50-10.00) 10*3/uL RBC (4.10-5.20) 10*6/uL Hgb (12.0-15.0) g/dL Hct (37.2-46.3) % MCV (80.0-97.0) fL MCH (27.0-32.0) pg MCHC (32.0-37.0) g/dL Plt Count (140-440) 10*3/uL MPV (9.5-12.2) fL Immature Gran % (Auto) % Neutrophils % % Lymphocytes % % Monocytes % % Eosinophils % % Basophils % % Immature Gran # (0.00-0.04) 10*3/uL Neutrophils # (1.80-7.70) 10*3/uL Lymphocytes # (0.90-5.00) 10*3/uL Monocytes # (0.20-1.00) 10*3/uL Eosinophils # (0.04-0.35) 10*3/uL Basophils # (0.00-0.10) 10*3/uL PT (10.0-12.5) sec INR (<1.2) APTT (22.0-30.0) sec Sodium (137-145) mmol/L Potassium (3.5-5.1) mmol/L Chloride (98-107) mmol/L Carbon Dioxide (22-30) mmol/L Anion Gap mmol/L BUN (7-17) mg/dL Creatinine (0.52-1.04) mg/dL Est GFR (CKD-EPI)AfAm (>60 ml/min/1.73 sqM) Est GFR (CKD-EPI)NonAf (>60 ml/min/1.73 sqM) Glucose (74-99) mg/dL Plasma Lactic Acid Don 2.6 H* (0.7-2.0) mmol/L Calcium (8.4-10.2) mg/dL Magnesium (1.6-2.3) mg/dL Total Bilirubin (0.2-1.3) mg/dL AST (14-36) U/L ALT (4-34) U/L Alkaline Phosphatase (38-126) U/L Total Protein (6.3-8.2) g/dL Albumin (3.5-5.0) g/dL Urine Color Colorless Urine Appearance Cloudy H (Clear) Urine pH 5.5 (5.0-8.0) Ur Specific Orr 1.008 (1.001-1.035) Urine Protein Negative (Negative) Urine Glucose (UA) Negative (Negative) Urine Ketones Negative (Negative) Urine Blood Negative (Negative) Urine Nitrite Negative (Negative) Urine Bilirubin Negative (Negative) Urine Urobilinogen <2.0 (<2.0) mg/dL Ur Leukocyte Esterase Negative (Negative) Urine RBC <1 (0-5) /hpf Urine WBC <1 (0-5) /hpf Ur Squamous Epith Cells 6 H (0-4) /hpf Urine Bacteria Occasional H (None) /hpf Urine Mucus Rare H (None) /hpf - EKG Data -: EKG Interpreted by Me EKG Comments: 12-lead Electrocardiogram Interpretation Note EKG was reviewed and interpreted by myself. 12-lead ECG performed at 1153 is interpreted by me as revealing normal sinus rhythm at a rate of 91 beats per minute. [place] is normal. NC interval is 135 ms, QRS duration is 89 ms, QTc is 378 ms.. There were no ST or T wave abnormalities to suggest myocardial ischemia or injury. R wave progression across the precordium was satisfactory. By my interpretation this EKG is non-diagnostic for acute ischemia. Disposition Clinical Impression: Arm paresthesia, left, Radiculopathy affecting upper extremity Disposition: HOME SELF-CARE Condition: Good Instructions (If sedation given, give patient instructions): Cervical Radiculopathy (ED) Is patient prescribed a controlled substance at d/c from ED?: No Referrals: Rylan Huerta MD [Primary Care Provider] - 1-2 days Time of Disposition: 15:00
[2025-05-15 15:29] VITALS: BP 118/74; PULSE 67; RESP 16; TEMP 99.1
== END 2025-05-15 15:30 | disposition home or self-care (01) ==
LOC: EC 11:41
DX: R20.2 Paresthesia of skin (principal); M54.12 Radiculopathy, cervical region; Z87.891 Personal history of nicotine dependence
CPT/HCPCS: 36415; 70450; 72125; 80053; 81001; 83605; 83735; 85025; 85610; 85730; 93005; 96360; 96361; 99284